=== PATIENT | female | born 1945 | race Caucasian/White ===

== ENCOUNTER 2016-09-22 17:18 | Inpatient (IN) | payer MEDICARE ==
--- NOTE | 2016-09-22 18:01 | ED ---
General Adult HPI - General Chief complaint: Extremity Problem,Nontraumatic Stated complaint: leg pain swelling Time Seen by Provider: 09/22/16 17:55 Source: patient, family, RN notes reviewed, old records reviewed Mode of arrival: wheelchair Limitations: physical limitation - History of Present Illness Initial comments: This is a 71-year-old female here for evaluation. Patient brought in by [place] for evaluation of lower extremity edema, patient's poor strain secondary to clinical and overall mental state. Family concerned about lower extremity swelling and redness, especially worse in the left side compared to the right. Patient is of physical complaints, is tangential in her story telling. - Related Data Home Medications Medication Instructions Recorded Confirmed Betamethasone Dipropionate 1 applic TOPICAL BID 09/22/16 09/22/16 [Diprolene AF 0.05% Cream] Cholestyramine (with Sugar) 4 gm PO DAILY 09/22/16 09/22/16 [Questran] Cranberry 425mg 425 mg PO DAILY 09/22/16 09/22/16 Doxycycline Hyclate 100 mg PO BID 09/22/16 09/22/16 Felodipine [Felodipine ER] 5 mg PO HS 09/22/16 09/22/16 Haloperidol [Haldol] 5 mg PO BID PRN 09/22/16 09/22/16 Hydrochlorothiazide [Hydrodiuril] 25 mg PO DAILY 09/22/16 09/22/16 Ibuprofen [Advil] 200 - 400 mg PO Q8HR PRN 09/22/16 09/22/16 Insulin Aspart Protam & Aspart 16 unit SQ HS 09/22/16 09/22/16 [NovoLOG MIX 70-30 Flexpen] Insulin Aspart Protam & Aspart 28 unit SQ [id number] 09/22/16 09/22/16 [NovoLOG MIX 70-30 Flexpen] Losartan/Hydrochlorothiazide 1 tab PO DAILY 09/22/16 09/22/16 [Losartan-Hctz 100-25 mg Tab] Metoprolol Tartrate [Lopressor] 100 mg PO BID 09/22/16 09/22/16 Mupirocin 2% Oint [Bactroban 2% 1 applic TOPICAL BID 09/22/16 09/22/16 Oint] Omeprazole [PriLOSEC] 20 mg PO DAILY 09/22/16 09/22/16 Oxybutynin ER [Ditropan Xl] 15 mg PO DAILY 09/22/16 09/22/16 Triphrocaps 1 cap PO DAILY 09/22/16 09/22/16 Venlafaxine HCl [Effexor] 75 mg PO TID 09/22/16 09/22/16 cloNIDine HCL 0.3 mg PO BID 09/22/16 09/22/16 hydrOXYzine HCL [Atarax] 25 mg PO BID 09/22/16 09/22/16 metFORMIN HCL [Glucophage] 500 mg PO BID 09/22/16 09/22/16 traMADol-ACETAMINOP 37.5-325MG 1 tab PO QID PRN 09/22/16 09/22/16 [Ultracet] Allergies Allergy/AdvReac Type Severity Reaction Status Date / Time Penicillins Allergy Anaphylaxis Verified 09/22/16 17:38 Sulfa (Sulfonamide Allergy Unknown Verified 09/22/16 17:38 Antibiotics) Childhood Review of Systems ROS Statement: Those systems with pertinent positive or pertinent negative responses have been documented in the HPI. ROS Other: All systems not noted in ROS Statement are negative. Past Medical History Past Medical History: Diabetes Mellitus, Hypertension, Liver Disease History of Any Multi-Drug Resistant Organisms: MRSA Date of last positivie culture/infection: 2013 MDRO Source:: [place] legs Past Surgical History: Back Surgery, Cholecystectomy, Hernia Repair, Orthopedic Surgery Additional Past Surgical History / Comment(s): edwin knee,eye surgery Past Psychological History: Anxiety Smoking Status: Former smoker Past Alcohol Use History: None Reported Past Drug Use History: None Reported - Past Family History Mother Family Medical History: Congestive Heart Failure (CHF), Diabetes Mellitus General Exam - General Exam Comments Initial Comments: Circumferential bilateral bilateral lower extremity edema and erythema with warmth Limitations: physical limitation General appearance: alert, in no apparent distress Head exam: Present: atraumatic, normocephalic, normal inspection Eye exam: Present: normal appearance, PERRL, EOMI. Absent: scleral icterus, conjunctival injection, periorbital swelling ENT exam: Present: normal exam, mucous membranes moist Neck exam: Present: normal inspection. Absent: tenderness, meningismus, lymphadenopathy Respiratory exam: Present: normal lung sounds bilaterally. Absent: respiratory distress, wheezes, rales, rhonchi, stridor Cardiovascular Exam: Present: regular rate, normal rhythm, normal heart sounds. Absent: systolic murmur, diastolic murmur, rubs, gallop, clicks GI/Abdominal exam: Present: soft, normal bowel sounds. Absent: distended, tenderness, guarding, rebound, rigid Extremities exam: Present: normal inspection, full ROM, normal capillary refill. Absent: tenderness, pedal edema, joint swelling, calf tenderness Back exam: Present: normal inspection Neurological exam: Present: alert, oriented X3, CN II-XII intact Psychiatric exam: Present: normal affect, normal mood Skin exam: Present: warm, dry, intact, normal color. Absent: rash Course Vital Signs 09/22/16 09/22/16 17:31 18:38 Temperature 98.2 F Pulse Rate 60 88 Respiratory 18 18 Rate Blood Pressure 183/73 O2 Sat by Pulse 95 99 Oximetry - Reevaluation(s) Reevaluation #1: Family spoke with greater than 15 minutes regarding plan of care, questions are answered Medical Decision Making - Medical Decision Making 71 female the ER for evaluation of altered mental status, patient also has bilateral lower extremity edema and swelling, positive cellulose, patient admitted for antibiotics and further evaluation of abnormal lab results. Including pancytopenia - Lab Data Result diagrams: 09/25/16 08:21 09/25/16 08:21 Lab Results 09/22/16 09/22/16 09/22/16 Range/Units 18:50 18:50 18:50 WBC 4.8 (3.8-10.6) k/uL RBC 4.44 (3.80-5.40) m/uL Hgb 13.2 (11.4-16.0) gm/dL Hct 38.4 (34.0-46.0) % MCV 86.4 (80.0-100.0) fL MCH 29.6 (25.0-35.0) pg MCHC 34.3 (31.0-37.0) g/dL RDW 15.3 (11.5-15.5) % Plt Count 65 L (150-450) k/uL Neutrophils % 67 % Lymphocytes % 12 % Monocytes % 8 % Eosinophils % 10 % Basophils % 1 % Neutrophils # 3.2 (1.3-7.7) k/uL Lymphocytes # 0.6 L (1.0-4.8) k/uL Monocytes # 0.4 (0-1.0) k/uL Eosinophils # 0.5 (0-0.7) k/uL Basophils # 0.0 (0-0.2) k/uL Manual Slide Review Performed Polychromasia Present Poikilocytosis Slight PT (9.0-12.0) sec INR (<1.1) APTT (22.0-30.0) sec D-Dimer (<0.60) mg/L FEU Sodium 138 (137-145) mmol/L Potassium 3.8 (3.5-5.1) mmol/L Chloride 100 (98-107) mmol/L Carbon Dioxide 28 (22-30) mmol/L Anion Gap 10 mmol/L BUN 17 (7-17) mg/dL Creatinine 0.64 (0.52-1.04) mg/dL Est GFR (MDRD) Af Amer >60 (>60 ml/min/1.73 sqM) Est GFR (MDRD) Non-Af >60 (>60 ml/min/1.73 sqM) Glucose 184 H (74-99) mg/dL Estimated Ave Glu mg/dL mg/dL Hemoglobin A1c (4.2-6.1) % Calcium 10.0 (8.4-10.2) mg/dL Phosphorus 2.7 (2.5-4.5) mg/dL Magnesium 1.3 L (1.6-2.3) mg/dL Total Bilirubin 0.9 (0.2-1.3) mg/dL AST 66 H (14-36) U/L ALT 61 H (9-52) U/L Alkaline Phosphatase 90 (38-126) U/L Total Creatine Kinase 32 (30-135) U/L CK-MB (CK-2) 0.7 (0.0-2.4) ng/mL CK-MB (CK-2) Rel Index 2.2 Troponin I <0.012 (0.000-0.034) ng/mL Total Protein 7.5 (6.3-8.2) g/dL Albumin 4.0 (3.5-5.0) g/dL Urine Color Urine Appearance (Clear) Urine pH (5.0-8.0) Ur Specific [place] (1.001-1.035) Urine Protein (Negative) Urine Glucose (UA) (Negative) Urine Ketones (Negative) Urine Blood (Negative) Urine Nitrite (Negative) Urine Bilirubin (Negative) Urine Urobilinogen (<2.0) mg/dL Ur Leukocyte Esterase (Negative) Urine RBC (0-5) /hpf Urine WBC (0-5) /hpf Ur Squamous Epith Cells (0-4) /hpf Urine Bacteria (None) /hpf Urine Mucus (None) /hpf Urine Yeast (Budding) (None) /hpf 09/22/16 09/22/16 09/22/16 Range/Units 18:50 18:50 18:50 WBC (3.8-10.6) k/uL RBC (3.80-5.40) m/uL Hgb (11.4-16.0) gm/dL Hct (34.0-46.0) % MCV (80.0-100.0) fL MCH (25.0-35.0) pg MCHC (31.0-37.0) g/dL RDW (11.5-15.5) % Plt Count (150-450) k/uL Neutrophils % % Lymphocytes % % Monocytes % % Eosinophils % % Basophils % % Neutrophils # (1.3-7.7) k/uL Lymphocytes # (1.0-4.8) k/uL Monocytes # (0-1.0) k/uL Eosinophils # (0-0.7) k/uL Basophils # (0-0.2) k/uL Manual Slide Review Polychromasia Poikilocytosis PT 11.7 (9.0-12.0) sec INR 1.2 (<1.1) APTT 23.8 (22.0-30.0) sec D-Dimer 0.56 (<0.60) mg/L FEU Sodium (137-145) mmol/L Potassium (3.5-5.1) mmol/L Chloride (98-107) mmol/L Carbon Dioxide (22-30) mmol/L Anion Gap mmol/L BUN (7-17) mg/dL Creatinine (0.52-1.04) mg/dL Est GFR (MDRD) Af Amer (>60 ml/min/1.73 sqM) Est GFR (MDRD) Non-Af (>60 ml/min/1.73 sqM) Glucose (74-99) mg/dL Estimated Ave Glu mg/dL 148 mg/dL Hemoglobin A1c 6.8 H (4.2-6.1) % Calcium (8.4-10.2) mg/dL Phosphorus (2.5-4.5) mg/dL Magnesium (1.6-2.3) mg/dL Total Bilirubin (0.2-1.3) mg/dL AST (14-36) U/L ALT (9-52) U/L Alkaline Phosphatase (38-126) U/L Total Creatine Kinase (30-135) U/L CK-MB (CK-2) (0.0-2.4) ng/mL CK-MB (CK-2) Rel Index Troponin I (0.000-0.034) ng/mL Total Protein (6.3-8.2) g/dL Albumin (3.5-5.0) g/dL Urine Color Yellow Urine Appearance Cloudy H (Clear) Urine pH 6.5 (5.0-8.0) Ur Specific [place] 1.008 (1.001-1.035) Urine Protein Negative (Negative) Urine Glucose (UA) Negative (Negative) Urine Ketones Negative (Negative) Urine Blood Small H (Negative) Urine Nitrite Negative (Negative) Urine Bilirubin Negative (Negative) Urine Urobilinogen <2.0 (<2.0) mg/dL Ur Leukocyte Esterase Large H (Negative) Urine RBC 6 H (0-5) /hpf Urine WBC >182 H (0-5) /hpf Ur Squamous Epith Cells <1 (0-4) /hpf Urine Bacteria Many H (None) /hpf Urine Mucus Rare H (None) /hpf Urine Yeast (Budding) Occasional H (None) /hpf - Radiology Data Radiology results: report reviewed (Ultrasound negative for DVT, chest x-ray negative for acute disease), image reviewed Disposition Clinical Impression: Bilateral lower extremity edema, Cellulitis, Altered mental status, Thrombocytopenia Disposition: ADMITTED IP TO THIS [facility] Condition: Fair
[2016-09-22] MEDS ORDERED: IV VANCOMYCIN PER PHARMACY 1 EACH MISC MISCELLANE PRN (18:38)
[2016-09-22] MEDS ORDERED: VANCOMYCIN 1,500 MG in SODIUM CHLORIDE 0.9% 250 ML IVPB STA (18:45)
[2016-09-22 19:07] LABS: Appearance,Urine Cloudy (Clear); Bacteria,Urine Many /hpf; Bilirubin,Urine Negative (Negative); Glucose,Urine (UA) Negative (Negative); Ketones,Urine Negative (Negative); Leukocyte Esterase,Urine Large (Negative); Mucus,Urine Rare /hpf; Nitrite,Urine Negative (Negative); PH, Urine 6.5 (5.0-8.0); Particle Count 2171; Protein,Urine Negative (Negative); RBC,Urine 6 /hpf (0-5); Specific Gravity,Urine 1.008 (1.001-1.035); Squamous Epithelial Cell,Urine <1 /hpf (0-4); UA Billing (MACRO vs. MICRO) MICRO; Urobilinogen,Urine <2.0 mg/dL (<2.0); WBC,Urine >182 /hpf (0-5)
--- NOTE | 2016-09-22 19:11 | XR ---
EXAMINATION TYPE: XR chest 2V DATE OF EXAM: 09/22/2016 7:07 PM COMPARISON: NONE HISTORY: Weakness TECHNIQUE: Frontal and lateral views of the chest are obtained. FINDINGS: There is a poor inspiration. Heart is enlarged. There is no definite heart failure. There is no sign of pleural effusion. There are no hilar masses. There are calcified granulomata at the pul monary marianna. IMPRESSION: Cardiomegaly. No gross heart failure.
[2016-09-22 19:13] LABS: INR 1.2 (<1.1); Partial Thromboplastin Time 23.8 sec (22.0-30.0); Prothrombin Time 11.7 sec (9.0-12.0)
[2016-09-22 19:14] LABS: ALT 61 U/L (9-52); AST 66 U/L (14-36); Alkaline Phosphatase 90 U/L (38-126); Anion Gap 10 mmol/L; Blood Urea Nitrogen 17 mg/dL (7-17); Carbon Dioxide 28 mmol/L (22-30); Chloride 100 mmol/L (98-107); Glucose 184 mg/dL (74-99); Magnesium 1.3 mg/dL (1.6-2.3); Non-African American GFR(MDRD) >60 (>60 ml/min/1.73 sqM); Phosphorous 2.7 mg/dL (2.5-4.5); Potassium 3.8 mmol/L (3.5-5.1); Sodium 138 mmol/L (137-145); Total Bilirubin 0.9 mg/dL (0.2-1.3); Total Protein 7.5 g/dL (6.3-8.2)
[2016-09-22 19:20] LABS: Creatine Kinase 32 U/L (30-135)
[2016-09-22 19:24] LABS: Basophils % (A) 1 %; CH 29.9; CHCM 34.9; Eosinophils # (A) 0.5 k/uL (0-0.7); Eosinophils % (A) 10 %; HCT 38.4 % (34.0-46.0); HGB 13.2 gm/dL (11.4-16.0); Luc # (Auto) 0.14; Luc % (Auto) 3; Lymphocytes # (A) 0.6 k/uL (1.0-4.8); Lymphocytes % (A) 12 %; MCH 29.6 pg (25.0-35.0); MCHC 34.3 g/dL (31.0-37.0); MCV 86.4 fL (80.0-100.0); Mean Platelet Volume 7.9; Monocytes # (A) 0.4 k/uL (0-1.0); Monocytes % (A) 8 %; Neutrophils # (A) 3.2 k/uL (1.3-7.7); Neutrophils % (A) 67 %; Poikilocytosis Slight; RBC 4.44 m/uL (3.80-5.40); RDW 15.3 % (11.5-15.5); WBC 4.8 k/uL (3.8-10.6); WBC (Perox) 4.51
[2016-09-22 19:34] LABS: Creatine Kinase MB 0.7 ng/mL (0.0-2.4); Troponin I <0.012 ng/mL (0.000-0.034)
[2016-09-22] MEDS ORDERED: LEVOFLOXACIN 750 MG TAB PO STA (20:19)
[2016-09-22 20:28] LABS: Manual Review Performed
[2016-09-22 20:29] LABS: Polychromasia Present
--- NOTE | 2016-09-22 21:18 | US ---
EXAMINATION TYPE: US venous doppler duplex LE DATE OF EXAM: 09/22/2016 9:06 PM COMPARISON: NONE CLINICAL HISTORY: Pain. EC patient with medial thigh pain; on antibiotic for left leg cellulitis SIDE PERFORMED: Bilateral VESSELS IMAGED: Common Femoral Vein Deep Femoral Vein Greater Saphenous Vein * Femoral Vein Popliteal Vein Small Saphenous Vein * Proximal Calf Veins (* superficial vessels) Right Leg: Negative for DVT; bilateral ankle edema channels are noted anteriorly and right > left an kle. Left Leg: Negative for DVT IMPRESSION: There is no evidence of deep venous thrombosis. There is some edema noted at the ankles.
[2016-09-22] MEDS ORDERED: ACETAMINOPHEN TAB 325 MG TAB PO PRN (22:05)
[2016-09-22] MEDS ORDERED: NALOXONE 0.4 MG/ML 1 ML VIAL IV PRN (22:05)
[2016-09-22] MEDS ORDERED: MAGNESIUM OXIDE 400 MG TAB PO STA (22:09)
[2016-09-22] MEDS ORDERED: HALOPERIDOL 5 MG TAB PO PRN (22:09)
[2016-09-23] MEDS: SODIUM CHLORIDE 0.9% 1,000 ML IV SCH ×2 (00:22→20:28)
[2016-09-23] MEDS: traMADol-ACETAMINOP 37.5-325MG 1 EACH TAB PO PRN ×2 (00:35→20:22)
[2016-09-23 02:46] LABS: Glucose,Whole Blood 246 mg/dL (75-99)
[2016-09-23] MEDS: VANCOMYCIN 1,500 MG in SODIUM CHLORIDE 0.9% 250 ML IVPB SCH ×2 (06:12→17:30)
[2016-09-23 07:07] LABS: Glucose,Whole Blood 204 mg/dL (75-99)
[2016-09-23] MEDS: INSULIN LISPRO (humaLOG) 300 UNIT/3 ML VIAL SQ SCH ×4 (07:27→20:53)
[2016-09-23] MEDS: PANTOPRAZOLE 40 MG TABLET PO SCH (07:27)
[2016-09-23] MEDS: metFORMIN 500 MG TAB PO SCH ×2 (07:27→17:10)
[2016-09-23] MEDS: INSULN ASP PRT/INSULIN ASPART 100 UNIT/ML 10 ML VIAL SQ SCH ×2 (07:27→20:52)
[2016-09-23] MEDS: HYDROCHLOROTHIAZIDE 25 MG TAB PO SCH (08:07)
[2016-09-23] MEDS: LOSARTAN-HCTZ 50-12.5 MG 1 EACH TAB PO SCH (08:07)
[2016-09-23] MEDS: METOPROLOL TARTRATE 50 MG TAB PO SCH ×2 (08:07→20:24)
[2016-09-23] MEDS: OXYBUTYNIN 15 MG TAB.ER.24 PO SCH (08:07)
[2016-09-23] MEDS: hydrOXYzine HCL 25 MG TAB PO SCH ×2 (08:08→20:24)
[2016-09-23] MEDS: HEPARIN SODIUM,PORCINE 5,000 UNIT/ML 1 ML VIAL SQ SCH ×2 (08:08→20:25)
[2016-09-23] MEDS: VENLAFAXINE HCL 75 MG TAB PO SCH ×3 (08:08→20:53)
[2016-09-23] MEDS: cloNIDine HCL 0.1 MG TAB PO SCH ×2 (08:08→20:24)
[2016-09-23] MEDS: CHOLESTYRAMINE (WITH SUGAR) 4 GM PACKET PO SCH (08:08)
[2016-09-23] MEDS: MUPIROCIN 2% OINT 22 GM TUBE TOPICAL SCH ×2 (08:21→20:24)
[2016-09-23] MEDS: BETAMETHASONE DIPROPIONATE 0.05% CREAM 15 GM TUBE TOPICAL SCH ×2 (08:21→20:26)
[2016-09-23] MEDS ORDERED: CRANBERRY 425 MG PO SCH (09:00)
[2016-09-23] MEDS ORDERED: DOXYCYCLINE 50 MG CAP PO SCH (09:00)
[2016-09-23] MEDS ORDERED: FAMOTIDINE 20 MG TAB PO SCH (09:00)
[2016-09-23] MEDS: B COMPLEX-VIT C-VIT E-ZINC 1 EACH TAB PO SCH (11:41)
[2016-09-23 11:47] LABS: Glucose,Whole Blood 192 mg/dL (75-99)
[2016-09-23 12:35] LABS: Hemoglobin A1C 6.8 % (4.2-6.1)
[2016-09-23] MEDS ORDERED: PERMETHRIN 5% CREAM 60 GM TUBE TOPICAL ONE (16:00)
[2016-09-23 16:58] LABS: Glucose,Whole Blood 137 mg/dL (75-99)
--- NOTE | 2016-09-23 19:19 | CT ---
EXAMINATION TYPE: CT brain wo con DATE OF EXAM: 09/23/2016 6:54 PM COMPARISON: NONE HISTORY: Patient poor historian. Changes in mental status. CT DLP: 1126 mGycm Automated exposure control for dose reduction was used. FINDINGS: There is cerebral cortical atrophy. There is no mass effect nor midline shift. There is no sign of in tracranial hemorrhage. The calvarium is intact. IMPRESSION: Normal unenhanced head CT scan.
[2016-09-23] MEDS: LEVOFLOXACIN 500 MG TAB PO SCH (20:24)
[2016-09-23] MEDS: amLODIPine 5 MG TAB PO SCH (20:28)
[2016-09-23 21:05] LABS: Hepatitis B Core IgM Index 0.03
[2016-09-23 21:07] LABS: Glucose,Whole Blood 187 mg/dL (75-99)
[2016-09-23 21:17] LABS: Hepatitis C Virus IgG Index 0.06
[2016-09-23 21:19] LABS: Hepatitis C Virus IgG Ab Negative (Negative)
--- NOTE | 2016-09-23 21:52 | HP ---
DATE OF ADMISSION: 09/22/2016 CHIEF COMPLAINT: Leg pain and swelling and as well as confusion. HISTORY OF PRESENT ILLNESS: This 71-year-old woman with a past medical history of multiple medical problems, including diabetes, hypertension, and history of liver disease, history of MRSA, history of back surgeries, cholecystectomy, history of anxiety, history of significant history of substance abuse in the past, apparently living in an [facility] home was noted to have some confusion as well as significant lesions in the legs and trunk. The patient had severe itching. The patient was evaluated by dermatology apparently. The patient was taken to [facility] and was admitted for further evaluation and treatment. There is no any fever, or any chills. No history of trauma. The patient is confused, unable to give coherent history. Most of the history taken from review of the chart, discussion with the staff and review of the chart at this time. The patient had a chest x-ray which showed cardiomegaly with no evidence of any gross failure. The patient also had a venous Doppler study, which showed no evidence of any DVT, some edema of the ankle was noted. Past medical history: History of diabetes mellitus, history of chronic liver disease, hypertension, history of MRSA, history of back surgery, cholecystectomy, history of anxiety. Medications prior to admission include home medications are: 1. Doxycycline 100 mg p.o. b.i.d. 2. Ultracet 1 tablet p.o. q.i.d. p.r.n. 3. Advil 200/400 q.8 p.r.n. 4. Haldol 5 mg b.i.d. p.r.n. 5. Cranberry p.o. daily. 6. Diprolene 1 application topically b.i.d. 7. Triphrocaps one cap daily. 8. Prilosec 20 mg daily. 9. Atrovent 2% b.i.d. 10. Novolin 70/30 60 units subcutaneously at bedtime and 22 subcu a.c. breakfast. 11. Ditropan XL 15 mg p.o. daily, 12. Losartan hydrochlorothiazide 100/25 mg p.o. daily. 13. Clonidine 0.3 p.o. b.i.d. 14. Effexor 75 mg p.o. t.i.d. 15. Lopressor 100 mg p.o. b.i.d. 16. HydroDIURIL 25 mg p.o. daily. 17. Felodipine 5 mg p.o. q.h.s. 18. Questran 4 grams p.o. daily. 19. Glucophage 500 mg p.o. b.i.d. 20. Atarax 25 mg p.o. b.i.d. ALLERGIES: PENICILLIN, SULFA. FAMILY HISTORY: History of congestive heart failure and diabetes mellitus in the family. SOCIAL HISTORY: Previous history of smoking. No history of current smoking or alcohol intake. REVIEW OF SYSTEMS: Could not be taken at length because of the patient's change in mental status. PHYSICAL EXAMINATION: Patient is conscious, confused, dysarthric. Pulse is 50, blood pressure 142/60, respiration 16, temperature 98.2. Pulse ox 94% on room air. HEENT: Conjunctivae normal. Oral mucosa moist. NECK: No JVD. No carotid bruit. No lymph node enlargement. CARDIOVASCULAR: S1, S2 muffled. No S3, no S4. RESPIRATORY: Breath sounds diminished at the bases. Bilateral scattered rhonchi and crackles. ABDOMEN: Soft and nontender. No mass palpable. No hepatosplenomegaly. Legs: No edema. No swelling. Nervous system: Higher functions as mentioned earlier. moves all four limbs. No focal motor or sensory deficits. LYMPHATICS: No lymph nodes palpable in the neck, axillae or groin. SKIN: No ulcer, rash or bleeding. Labs are platelets are 65. Otherwise, glucose 148, AST 63, ALT 61 and magnesium is 1.3. UA shows significant urinary tract infection. ASSESSMENT: 1. Change in mental status, and metabolic encephalopathy with acute on chronic multifactorial, possibly secondary to liver disease, and as well as urinary tract infection with sepsis. 2. Urinary tract infection with sepsis. 3. Type 2 diabetes mellitus. 4. Diffuse skin lesions, possibly secondary from chronic liver disease. 5. Chronic liver disease. 6. Remote history of significant polysubstance abuse. 7. Thrombocytopenia. 8. Increased AST, ALT. 9. Hypomagnesemia. 10. History of diabetes type 2. 11. Hypertension. 12. History of Methicillin-resistant Staph aureus. 13. History of back surgery and degenerative joint disease. 14. History of cholecystectomy. 15. History of knee surgery, degenerative joint disease. 16. History of anxiety, not otherwise specified. 17. FULL CODE. 18. Remote history of nicotine dependence. RECOMMENDATIONS AND DISCUSSION: This 71-year-old woman who presented with multiple complex medical issues, we will monitor the patient closely. Continue the current medications, continue symptomatic treatment. Otherwise, I would recommend empiric antibiotics at this time and I would also recommend ammonia. Repeat labs. Otherwise, follow the cultures. We also check a serum lactic acidosis if not done. Guarded prognosis because of multiple complex medical issues. Further recommendations to follow. A copy of dictation forwarded to Dr. Renner who is the primary physician. MARCELLUS
[2016-09-24 02:50] LABS: Glucose,Whole Blood 174 mg/dL (75-99)
[2016-09-24] MEDS ORDERED: VANCOMYCIN TROUGH DUE 1 EACH MISC MISCELLANE ONE (05:00)
[2016-09-24] MEDS: VANCOMYCIN 1,500 MG in SODIUM CHLORIDE 0.9% 250 ML IVPB SCH ×2 (05:43→17:36)
[2016-09-24 06:01] LABS: ALT 50 U/L (9-52); AST 41 U/L (14-36); Alkaline Phosphatase 61 U/L (38-126); Anion Gap 9 mmol/L; Blood Urea Nitrogen 17 mg/dL (7-17); Calcium 9.7 mg/dL (8.4-10.2); Carbon Dioxide 30 mmol/L (22-30); Chloride 102 mmol/L (98-107); Glucose 138 mg/dL (74-99); Magnesium 1.3 mg/dL (1.6-2.3); Non-African American GFR(MDRD) >60 (>60 ml/min/1.73 sqM); Sodium 141 mmol/L (137-145); Total Bilirubin 0.7 mg/dL (0.2-1.3); Total Protein 6.3 g/dL (6.3-8.2)
[2016-09-24 06:21] LABS: Potassium 3.7 mmol/L (3.5-5.1)
[2016-09-24 06:33] LABS: Aty Lym Flag Slight; CH 29.6; CHCM 34.2; HCT 34.8 % (34.0-46.0); HDW 3.93; HGB 11.9 gm/dL (11.4-16.0); MCH 29.8 pg (25.0-35.0); MCHC 34.2 g/dL (31.0-37.0); MCV 87.2 fL (80.0-100.0); Mean Platelet Volume 9.1; Poikilocytosis Slight; RBC 3.99 m/uL (3.80-5.40); RDW 15.1 % (11.5-15.5); WBC 2.4 k/uL (3.8-10.6); WBC (Perox) 2.69
[2016-09-24 07:25] LABS: Glucose,Whole Blood 167 mg/dL (75-99)
[2016-09-24] MEDS: INSULIN LISPRO (humaLOG) 300 UNIT/3 ML VIAL SQ SCH ×4 (07:28→20:50)
[2016-09-24] MEDS: INSULN ASP PRT/INSULIN ASPART 100 UNIT/ML 10 ML VIAL SQ SCH ×2 (07:28→20:50)
[2016-09-24] MEDS: metFORMIN 500 MG TAB PO SCH ×2 (07:29→17:33)
[2016-09-24] MEDS: CHOLESTYRAMINE (WITH SUGAR) 4 GM PACKET PO SCH (07:44)
[2016-09-24] MEDS: MUPIROCIN 2% OINT 22 GM TUBE TOPICAL SCH ×2 (07:44→20:25)
[2016-09-24] MEDS: PANTOPRAZOLE 40 MG TABLET PO SCH (07:45)
[2016-09-24] MEDS: LOSARTAN-HCTZ 50-12.5 MG 1 EACH TAB PO SCH (07:45)
[2016-09-24] MEDS: cloNIDine HCL 0.1 MG TAB PO SCH ×2 (07:45→20:27)
[2016-09-24] MEDS: HYDROCHLOROTHIAZIDE 25 MG TAB PO SCH (07:46)
[2016-09-24] MEDS: hydrOXYzine HCL 25 MG TAB PO SCH ×2 (07:46→20:27)
[2016-09-24] MEDS: METOPROLOL TARTRATE 50 MG TAB PO SCH ×2 (07:46→20:28)
[2016-09-24] MEDS: VENLAFAXINE HCL 75 MG TAB PO SCH ×3 (07:47→20:29)
[2016-09-24] MEDS: OXYBUTYNIN 15 MG TAB.ER.24 PO SCH (07:47)
[2016-09-24] MEDS: BETAMETHASONE DIPROPIONATE 0.05% CREAM 15 GM TUBE TOPICAL SCH ×2 (07:49→20:26)
[2016-09-24 08:42] LABS: Add Differential Manual Differential
[2016-09-24 08:46] LABS: Manual Review Performed; Nucleated Red Blood Cells 0 /100 WBC (0-0); Total Cells Counted 100
[2016-09-24] MEDS: HEPARIN SODIUM,PORCINE 5,000 UNIT/ML 1 ML VIAL SQ SCH ×2 (09:35→20:27)
[2016-09-24] MEDS ORDERED: Magnesium Replacement Protocol 1 EACH MISC MISCELLANE PRN (10:55)
[2016-09-24] MEDS: MAGNESIUM SULFATE-D5W PMX 1 GM in DEXTROSE/WATER 1 100ML.BAG IVPB SCH ×3 (11:37→14:31)
[2016-09-24] MEDS: MULTIVITAMINS, THERA 1 EACH TAB PO SCH (11:40)
[2016-09-24] MEDS: FOLIC ACID 1 MG TAB PO SCH (11:40)
[2016-09-24] MEDS: B COMPLEX-VIT C-VIT E-ZINC 1 EACH TAB PO SCH (11:40)
[2016-09-24] MEDS: THIAMINE 100 MG TAB PO SCH (11:40)
[2016-09-24 12:01] LABS: Glucose,Whole Blood 147 mg/dL (75-99)
[2016-09-24 17:08] LABS: Glucose,Whole Blood 82 mg/dL (75-99)
--- NOTE | 2016-09-24 18:55 | PN ---
DATE OF SERVICE: 09/24/2016 This 71 -year-old woman admitted with leg swelling as well as confusion, metabolic encephalopathy is being closely monitored at this time. The patient was started on local treatment. The CAT scan of the brain was done, which showed a normal nonenhanced CAT scan. The patient is being closely monitored. Past medical history reviewed. REVIEW OF SYSTEMS: CARDIOVASCULAR: No angina or palpitations. RESPIRATORY: As mentioned earlier. GASTROINTESTINAL: As mentioned earlier. : No dysuria. Nervous system: No numbness or weakness. Current medications are reviewed and include: 1. Tylenol 650 q.6 p.r.n. 2. Norvasc 5 mg q.h.s. 3. Betamethasone. 4. Questran 4 mg a day. 5. Catapres 0.5 b.i.d. 6. Folic acid 1 mg daily. 8. Hyzaar 50/12.5 two b.i.d. 9. Heparin 5000 subcu b.i.d. 10. Hydrodiuril 25 mg daily. 11. Atarax 25 mg p.o. b.i.d. 12. Novolog mix 70/30 28 and 16 units. 13. Levaquin 500 mg daily. 14. Glucophage. 15. Lopressor. 16. Multivitamin. 17. Narcan. 18. Ditropan. 19. Vitamin B1. 20. Vancomycin. 21. Effexor. PHYSICAL EXAMINATION: The patient is alert and oriented times two. Pulse 50, blood pressure 130/68, respiratory rate 16, temperature 98.3, pulse ox 99% on room air. HEENT: Conjunctivae normal. NECK: No jugular venous distention. CARDIOVASCULAR: S1, S2 muffled. RESPIRATORY: Breath sounds diminished at the bases. A few scattered rhonchi and crackles. ABDOMEN: Soft, nontender. LEGS: No swelling. No edema. CENTRAL NERVOUS SYSTEM: Diffusely weak. LABS: WBC 2.5, platelets of 45. Sodium is 138, Vancomycin 12.1, albumin 3.1. ASSESSMENT: 1. Change in mental status, metabolic encephalopathy with acute on chronic multifactorial, possibly secondary liver disease, urinary tract infection with sepsis. 2. Urinary tract infection with sepsis present on admission. 3. Type 2 diabetes mellitus. 4. Diffuse skin lesions, possibly secondary from chronic liver disease or scabies. 5. Chronic liver disease. 6. Remote history of significant polysubstance abuse. 7. Thrombocytopenia. 8. Increased AST, ALT. 9. Thrombocytopenia secondary to chronic liver disease. 10. Hypomagnesemia. 11. History of diabetes mellitus type 2. 12. Hypertension. 13. History of Methicillin-resistant Staph aureus. 14. History of back surgery and degenerative joint disease. 15. History of cholecystectomy. 16. History of knee surgery and degenerative joint disease . 17. History of anxiety, not otherwise specified. 18. Remote history of nicotine dependence. 19. FULL CODE. RECOMMENDATIONS AND DISCUSSION: Recommend to continue current medications, continue symptomatic treatment. Continue with antibiotics. Repeat labs. Platelets have been low. There is no active bleeding manifestations. Closely monitor. We will obtain PT, OT evaluation and continue to monitor. Guarded prognosis because of multiple complex medical issues. Further recommendations to follow. MTDD
[2016-09-24] MEDS: amLODIPine 5 MG TAB PO SCH (20:25)
[2016-09-24] MEDS: LEVOFLOXACIN 500 MG TAB PO SCH (20:28)
[2016-09-24] MEDS: SODIUM CHLORIDE 0.9% 1,000 ML IV SCH (20:29)
[2016-09-24 20:44] LABS: Glucose,Whole Blood 200 mg/dL (75-99)
[2016-09-25 03:13] LABS: Glucose,Whole Blood 139 mg/dL (75-99)
[2016-09-25] MEDS: VANCOMYCIN 1,500 MG in SODIUM CHLORIDE 0.9% 250 ML IVPB SCH ×2 (05:26→17:46)
[2016-09-25] MEDS: traMADol-ACETAMINOP 37.5-325MG 1 EACH TAB PO PRN (06:31)
[2016-09-25 08:31] LABS: Glucose,Whole Blood 146 mg/dL (75-99)
[2016-09-25] MEDS: HEPARIN SODIUM,PORCINE 5,000 UNIT/ML 1 ML VIAL SQ SCH (08:53)
[2016-09-25] MEDS: LOSARTAN-HCTZ 50-12.5 MG 1 EACH TAB PO SCH (08:54)
[2016-09-25] MEDS: hydrOXYzine HCL 25 MG TAB PO SCH ×2 (08:54→20:53)
[2016-09-25] MEDS: METOPROLOL TARTRATE 50 MG TAB PO SCH ×2 (08:54→20:53)
[2016-09-25] MEDS: CHOLESTYRAMINE (WITH SUGAR) 4 GM PACKET PO SCH (08:55)
[2016-09-25] MEDS: cloNIDine HCL 0.1 MG TAB PO SCH ×2 (08:55→20:53)
[2016-09-25] MEDS: OXYBUTYNIN 15 MG TAB.ER.24 PO SCH (08:55)
[2016-09-25] MEDS: PANTOPRAZOLE 40 MG TABLET PO SCH (08:56)
[2016-09-25] MEDS: MUPIROCIN 2% OINT 22 GM TUBE TOPICAL SCH ×2 (08:56→20:55)
[2016-09-25] MEDS: metFORMIN 500 MG TAB PO SCH ×2 (08:56→16:48)
[2016-09-25] MEDS: VENLAFAXINE HCL 75 MG TAB PO SCH ×3 (08:56→21:40)
[2016-09-25] MEDS: INSULN ASP PRT/INSULIN ASPART 100 UNIT/ML 10 ML VIAL SQ SCH ×2 (08:56→21:00)
[2016-09-25] MEDS: BETAMETHASONE DIPROPIONATE 0.05% CREAM 15 GM TUBE TOPICAL SCH ×2 (08:56→20:55)
[2016-09-25] MEDS: INSULIN LISPRO (humaLOG) 300 UNIT/3 ML VIAL SQ SCH ×4 (08:57→20:53)
[2016-09-25 09:21] LABS: Aty Lym Flag Slight; CH 29.9; CHCM 34.6; HCT 33.6 % (34.0-46.0); HDW 3.97; HGB 11.4 gm/dL (11.4-16.0); MCH 29.5 pg (25.0-35.0); MCHC 33.8 g/dL (31.0-37.0); MCV 87.3 fL (80.0-100.0); Mean Platelet Volume 8.6; Poikilocytosis Slight; RBC 3.85 m/uL (3.80-5.40); RDW 15.4 % (11.5-15.5); WBC 2.3 k/uL (3.8-10.6); WBC (Perox) 2.43
[2016-09-25 09:29] LABS: ALT 42 U/L (9-52); AST 40 U/L (14-36); Alkaline Phosphatase 68 U/L (38-126); Anion Gap 8 mmol/L; Blood Urea Nitrogen 21 mg/dL (7-17); Calcium 9.4 mg/dL (8.4-10.2); Carbon Dioxide 31 mmol/L (22-30); Chloride 104 mmol/L (98-107); Glucose 141 mg/dL (74-99); Magnesium 1.5 mg/dL (1.6-2.3); Non-African American GFR(MDRD) >60 (>60 ml/min/1.73 sqM); Potassium 3.9 mmol/L (3.5-5.1); Sodium 143 mmol/L (137-145); Total Bilirubin 0.8 mg/dL (0.2-1.3); Total Protein 6.1 g/dL (6.3-8.2)
[2016-09-25 10:39] LABS: Add Differential Manual Differential
[2016-09-25 10:45] LABS: Nucleated Red Blood Cells 0 /100 WBC (0-0); Total Cells Counted 100
[2016-09-25] MEDS: FOLIC ACID 1 MG TAB PO SCH (11:31)
[2016-09-25] MEDS: THIAMINE 100 MG TAB PO SCH (11:31)
[2016-09-25] MEDS: HYDROCHLOROTHIAZIDE 25 MG TAB PO SCH (11:31)
[2016-09-25] MEDS: B COMPLEX-VIT C-VIT E-ZINC 1 EACH TAB PO SCH (11:31)
[2016-09-25] MEDS: MULTIVITAMINS, THERA 1 EACH TAB PO SCH (11:31)
[2016-09-25 12:09] LABS: Glucose,Whole Blood 210 mg/dL (75-99)
--- NOTE | 2016-09-25 14:45 | P.PN ---
Subjective Date of service 09/25/2016. Progress note dictated for Dr. Corcoran. Interval history: This a 71-year-old female resident of an assisted living , admitted with acute metabolic encephalopathy, possibly secondary to liver disease, UTI with sepsis and multiple other medical issues. Urine culture reporting Proteus mirabilis, antibiotics changed to Merrem. Evaluated by physical therapy and home with 22/01 supervision recommended at discharge. Using walker to ambulate. Afebrile. Platelets 38. Objective - Vital Signs Vital signs: Vital Signs Temp 97.7 F 09/25/16 07:00 Pulse 55 L 09/25/16 07:00 Resp 18 09/25/16 07:00 BP 145/65 09/25/16 07:00 Pulse Ox 95 09/25/16 07:00 Intake & Output 09/24/16 09/25/16 09/25/16 18:59 06:59 18:59 Other: Voiding Method Bedside Commode # Voids 2 1 1 # Bowel Movements 1 - Exam PHYSICAL EXAM: VITAL SIGNS: As above GENERAL: [Sitting up at side of bed, no acute distress] HEENT: [Pupils equal conjunctiva normal.] NECK: [Supple, no JVD] RESPIRATORY EFFORT:[Normal] LUNGS: [Diminished, CARDIOVASCULAR[regular S1 and S2, no murmurs rubs or gallops, positive edema] GI: [Abdomen soft, nontender, positive bowel sounds.] PSYCH: [Alert and oriented -2, mild pleasant confusion SKIN: Bilateral lower extremities erythema improving NEURO: No gross focal deficits, generalized diffuse weakness. Microbiology 09/22/16 18:50 Urine,Voided Urine Culture - Final Proteus mirabilis 09/22/16 18:50 Blood Blood Culture - Preliminary No Growth after 48 hours - Labs CBC & Chem 7: 09/25/16 08:21 09/25/16 08:21 Labs: Abnormal Lab Results - Last 24 Hours (Table) 09/24/16 09/25/16 09/25/16 Range/Units 20:42 03:11 08:21 WBC 2.3 L (3.8-10.6) k/uL Hct 33.6 L (34.0-46.0) % Plt Count 38 L* (150-450) k/uL Lymphocytes # (Manual) 0.2 L (1.0-4.8) k/uL Carbon Dioxide (22-30) mmol/L BUN (7-17) mg/dL Glucose (74-99) mg/dL POC Glucose (mg/dL) 200 H 139 H (75-99) mg/dL Magnesium (1.6-2.3) mg/dL AST (14-36) U/L Total Protein (6.3-8.2) g/dL Albumin (3.5-5.0) g/dL 09/25/16 09/25/16 09/25/16 Range/Units 08:21 08:28 12:06 WBC (3.8-10.6) k/uL Hct (34.0-46.0) % Plt Count (150-450) k/uL Lymphocytes # (Manual) (1.0-4.8) k/uL Carbon Dioxide 31 H (22-30) mmol/L BUN 21 H (7-17) mg/dL Glucose 141 H (74-99) mg/dL POC Glucose (mg/dL) 146 H 210 H (75-99) mg/dL Magnesium 1.5 L (1.6-2.3) mg/dL AST 40 H (14-36) U/L Total Protein 6.1 L (6.3-8.2) g/dL Albumin 3.0 L (3.5-5.0) g/dL Assessment and Plan Plan: 1. [Change in mental status, acute metabolic encephalopathy with acute on chronic, multifactorial possibly secondary liver disease, UTI with sepsis]. 2. [UTI with Proteus mirabilis with sepsis, present on admission]. 3. [Diabetes mellitus type 2]. 4. [Diffuse skin lesions possibly secondary from chronic liver disease or scabies]. 5. Chronic liver disease]. 6. [Remote history of significant polysubstance abuse]. 7. [Thrombocytopenia]. 8. Hypomagnesemia 9. History of MRSA l 10. Degenerative joint disease with history of back surgery and knee surgery 11. History of anxiety, not otherwise specified 12. Remote history of nicotine dependence. Plan: Continue on current medication regime ,monitoring and symptomatic treatment. As mentioned above Levaquin discontinued and Merrem initiated as urine culture now reporting Proteus mirabilis .Urine culture repeated and pending. Discharge planning in progress for tomorrow. PT/OT. The impression and plan of care has been dictated as directed. : I performed a H&P examination of this patient and discussed the same with the dictator. I agree with the dictator's note. Any additional findings/opinions/ etc. will be noted.
[2016-09-25 16:30] LABS: Glucose,Whole Blood 110 mg/dL (75-99)
[2016-09-25] MEDS: MEROPENEM 1 GM in SODIUM CHLORIDE 0.9% 100 ML IVPB SCH ×2 (16:48→23:12)
[2016-09-25 17:49] LABS: Iron 43 ug/dL (37-170)
[2016-09-25 17:59] LABS: Rheumatoid Factor, Qnt <9 IU/mL (<12); Total Iron Binding Capacity 226 ug/dL (265-497)
[2016-09-25 18:39] LABS: Vitamin B12 813 pg/mL
--- NOTE | 2016-09-25 19:45 | P.CONS ---
History of Present Illness - Reason for Consult Consult date: 09/25/16 thrombocytopenia Requesting physician: Juan Diego Corcoran - Chief Complaint leg pain, swelling - History of Present Illness She is a very pleasant 71-year-old female who stays at an assisted living facility. Patient states to me that she has known that she has had low platelets for several years. Patient was due to have an abdominal procedure at [facility] several years ago and she required platelet infusion before, during and after the surgery. Patient has a director of customer acquisition at [place] but she does not remember their name, she is now moved to this area to be closer with her son. She does not recall any specific treatments that were ordered for her or an official diagnosis. Patient states a known history of cirrhosis of the liver. Patient denies any epistaxis, gum bleeding, hemoptysis, hematemesis, she states that she occasionally has some hematuria, she denies any vaginal bleeding or discharge, no black or bloody stools, no hemorrhoids or bright red blood per rectum. Patient states that she has had the scabs present on her body for quite some time. She is admitted currently for treatment of lower extremity cellulitis. Review of Systems All systems: negative Constitutional: Reports as per HPI Past Medical History Past Medical History: Blood Disorder, Diabetes Mellitus, Hypertension, Liver Disease History of Any Multi-Drug Resistant Organisms: MRSA Year Discovered:: 2013 MDRO Source:: edwin legs Past Surgical History: Back Surgery, Cholecystectomy, Hernia Repair, Orthopedic Surgery Additional Past Surgical History / Comment(s): edwin knee,eye surgery Past Anesthesia/Blood Transfusion Reactions: Unable to Obtain Past Psychological History: Anxiety Smoking Status: Former smoker Past Alcohol Use History: None Reported Past Drug Use History: None Reported - Past Family History Mother Family Medical History: Congestive Heart Failure (CHF), Diabetes Mellitus Medications and Allergies Home Medications Medication Instructions Recorded Confirmed Type Betamethasone Dipropionate 1 applic TOPICAL BID 09/22/16 09/22/16 History [Diprolene AF 0.05% Cream] Cholestyramine (with Sugar) 4 gm PO DAILY 09/22/16 09/22/16 History [Questran] Cranberry 425mg 425 mg PO DAILY 09/22/16 09/22/16 History Doxycycline Hyclate 100 mg PO BID 09/22/16 09/22/16 History Felodipine [Felodipine ER] 5 mg PO HS 09/22/16 09/22/16 History Haloperidol [Haldol] 5 mg PO BID PRN 09/22/16 09/22/16 History Hydrochlorothiazide [Hydrodiuril] 25 mg PO DAILY 09/22/16 09/22/16 History Ibuprofen [Advil] 200 - 400 mg PO Q8HR PRN 09/22/16 09/22/16 History Insulin Aspart Protam & Aspart 16 unit SQ HS 09/22/16 09/22/16 History [NovoLOG MIX 70-30 Flexpen] Insulin Aspart Protam & Aspart 28 unit SQ AC-BRKFST 09/22/16 09/22/16 History [NovoLOG MIX 70-30 Flexpen] Losartan/Hydrochlorothiazide 1 tab PO DAILY 09/22/16 09/22/16 History [Losartan-Hctz 100-25 mg Tab] Metoprolol Tartrate [Lopressor] 100 mg PO BID 09/22/16 09/22/16 History Mupirocin 2% Oint [Bactroban 2% 1 applic TOPICAL BID 09/22/16 09/22/16 History Oint] Omeprazole [PriLOSEC] 20 mg PO DAILY 09/22/16 09/22/16 History Oxybutynin ER [Ditropan Xl] 15 mg PO DAILY 09/22/16 09/22/16 History Triphrocaps 1 cap PO DAILY 09/22/16 09/22/16 History Venlafaxine HCl [Effexor] 75 mg PO TID 09/22/16 09/22/16 History cloNIDine HCL 0.3 mg PO BID 09/22/16 09/22/16 History hydrOXYzine HCL [Atarax] 25 mg PO BID 09/22/16 09/22/16 History metFORMIN HCL [Glucophage] 500 mg PO BID 09/22/16 09/22/16 History traMADol-ACETAMINOP 37.5-325MG 1 tab PO QID PRN 09/22/16 09/22/16 History [Ultracet] Allergies Allergy/AdvReac Type Severity Reaction Status Date / Time Penicillins Allergy Anaphylaxis Verified 09/22/16 17:38 Sulfa (Sulfonamide Allergy Unknown Verified 09/22/16 17:38 Antibiotics) Childhood Physical Exam Vitals: Vital Signs Temp Pulse Resp BP Pulse Ox 09/25/16 15:00 96.6 F L 51 L 18 128/67 95 03/27/17 07:00 97.7 F 55 L 18 145/65 95 09/24/16 23:00 97.2 F L 63 16 110/54 94 L Intake and Output 09/25/16 09/25/16 09/25/16 06:59 14:59 22:59 Intake Total 1680 Balance 1680 Intake: IV 180 Sodium Chloride 0.9% 1, 180 000 ml @ 20 mls/hr IV . Q24H REBEKAH Rx#:[id number] Intake, IV Titration 250 Amount Vancomycin 1,500 mg In 250 Sodium Chloride 0.9% 250 ml @ 125 mls/hr IVPB Q12H REBEKAH Rx#:[id number] Oral 1250 Other: # Voids 1 3 # Bowel Movements 1 - Constitutional General appearance: cooperative, no acute distress - EENT Eyes: anicteric sclerae, poor dentition, normal appearance ENT: normal oropharynx - Neck Neck: no lymphadenopathy - Respiratory Respiratory: bilateral: CTA - Cardiovascular Heart sounds: normal: S1, S2 leg Peripheral Edema: bilateral: 1+ - Gastrointestinal Splenomegaly of about 2 fingerbreadths below the costal margin with inspiration , abdomen is distended, 1-2 fingerbreadths below costal margin hepatomegaly with inspiration General gastrointestinal: soft - Integumentary Multiple scabbed lesions noted on thighs and abdomen on the bilateral lower extremities are bronzed, no heat, ulcers or weeping noted. - Neurologic Neurologic: CNII-XII intact - Musculoskeletal Musculoskeletal: generalized weakness, strength equal bilaterally - Psychiatric Psychiatric: A&O x's 3, appropriate affect, intact judgment & insight Results CBC & Chem 7: 09/25/16 08:21 09/25/16 08:21 Labs: Abnormal Lab Results - Last 24 Hours (Table) 09/24/16 09/25/16 09/25/16 Range/Units 20:42 03:11 08:21 WBC 2.3 L (3.8-10.6) k/uL Hct 33.6 L (34.0-46.0) % Plt Count 38 L* (150-450) k/uL Lymphocytes # (Manual) 0.2 L (1.0-4.8) k/uL Carbon Dioxide (22-30) mmol/L BUN (7-17) mg/dL Glucose (74-99) mg/dL POC Glucose (mg/dL) 200 H 139 H (75-99) mg/dL Magnesium (1.6-2.3) mg/dL TIBC (265-497) ug/dL % Saturation (20-50) % AST (14-36) U/L Total Protein (6.3-8.2) g/dL Albumin (3.5-5.0) g/dL 09/25/16 09/25/16 09/25/16 Range/Units 08:21 08:21 08:28 WBC (3.8-10.6) k/uL Hct (34.0-46.0) % Plt Count (150-450) k/uL Lymphocytes # (Manual) (1.0-4.8) k/uL Carbon Dioxide 31 H (22-30) mmol/L BUN 21 H (7-17) mg/dL Glucose 141 H (74-99) mg/dL POC Glucose (mg/dL) 146 H (75-99) mg/dL Magnesium 1.5 L (1.6-2.3) mg/dL TIBC 226 L (265-497) ug/dL % Saturation 19.0 L (20-50) % AST 40 H (14-36) U/L Total Protein 6.1 L (6.3-8.2) g/dL Albumin 3.0 L (3.5-5.0) g/dL 09/25/16 09/25/16 Range/Units 12:06 16:29 WBC (3.8-10.6) k/uL Hct (34.0-46.0) % Plt Count (150-450) k/uL Lymphocytes # (Manual) (1.0-4.8) k/uL Carbon Dioxide (22-30) mmol/L BUN (7-17) mg/dL Glucose (74-99) mg/dL POC Glucose (mg/dL) 210 H 110 H (75-99) mg/dL Magnesium (1.6-2.3) mg/dL TIBC (265-497) ug/dL % Saturation (20-50) % AST (14-36) U/L Total Protein (6.3-8.2) g/dL Albumin (3.5-5.0) g/dL Assessment and Plan (1) Thrombocytopenia Narrative/Plan: Multiple labs been ordered for evaluation. We'll attempt to find patient's director of customer acquisition at [facility]. If she is going to be living locally I recommended that she should establish with a director of customer acquisition just to follow with her if needed, she verbalized understanding. For platelet count less than 50,000 no aspirin, NSAIDs, anticoagulation, heparin has been placed on hold for the time being. Status: Chronic
[2016-09-25 20:46] LABS: Glucose,Whole Blood 154 mg/dL (75-99)
[2016-09-25] MEDS: amLODIPine 5 MG TAB PO SCH (20:53)
[2016-09-25] MEDS: LEVOFLOXACIN 500 MG TAB PO SCH (20:53)
[2016-09-25] MEDS: SODIUM CHLORIDE 0.9% 1,000 ML IV SCH (20:55)
[2016-09-26] MEDS: traMADol-ACETAMINOP 37.5-325MG 1 EACH TAB PO PRN ×2 (00:41→23:11)
[2016-09-26 00:47] LABS: ANA w/Reflex to Titer NEGATIVE (NEGATIVE)
[2016-09-26 02:31] LABS: Glucose,Whole Blood 179 mg/dL (75-99)
[2016-09-26] MEDS: VANCOMYCIN 1,500 MG in SODIUM CHLORIDE 0.9% 250 ML IVPB SCH (05:05)
[2016-09-26 06:55] LABS: HIV-1/HIV-2 Ab Screen NONREAC (NON REAC)
[2016-09-26 07:10] LABS: Glucose,Whole Blood 101 mg/dL (75-99)
--- NOTE | 2016-09-26 07:26 | PN ---
DATE OF SERVICE: 09/25/2016 This is a 71-year-old woman who was admitted with change in mental status, also had a Proteus UTI with possible sepsis. Seen and evaluated the patient with the nurse practitioner. Please refer to the nurse practitioner's notes and impression document as ascribed for further information. Continue with the antibiotics. Further recommendations to follow.
[2016-09-26] MEDS: VENLAFAXINE HCL 75 MG TAB PO SCH ×3 (07:36→21:51)
[2016-09-26] MEDS: INSULN ASP PRT/INSULIN ASPART 100 UNIT/ML 10 ML VIAL SQ SCH ×2 (07:36→21:08)
[2016-09-26] MEDS: HYDROCHLOROTHIAZIDE 25 MG TAB PO SCH (07:37)
[2016-09-26] MEDS: cloNIDine HCL 0.1 MG TAB PO SCH ×2 (07:37→19:58)
[2016-09-26] MEDS: METOPROLOL TARTRATE 50 MG TAB PO SCH ×2 (07:37→19:58)
[2016-09-26] MEDS: LOSARTAN-HCTZ 50-12.5 MG 1 EACH TAB PO SCH (07:37)
[2016-09-26] MEDS: OXYBUTYNIN 15 MG TAB.ER.24 PO SCH (07:37)
[2016-09-26] MEDS: hydrOXYzine HCL 25 MG TAB PO SCH (07:38)
[2016-09-26] MEDS: PANTOPRAZOLE 40 MG TABLET PO SCH (07:39)
[2016-09-26] MEDS: metFORMIN 500 MG TAB PO SCH ×2 (07:39→17:19)
[2016-09-26] MEDS: CHOLESTYRAMINE (WITH SUGAR) 4 GM PACKET PO SCH (07:39)
[2016-09-26] MEDS: MEROPENEM 1 GM in SODIUM CHLORIDE 0.9% 100 ML IVPB SCH (07:39)
[2016-09-26] MEDS: INSULIN LISPRO (humaLOG) 300 UNIT/3 ML VIAL SQ SCH ×4 (08:26→21:08)
[2016-09-26] MEDS: BETAMETHASONE DIPROPIONATE 0.05% CREAM 15 GM TUBE TOPICAL SCH ×2 (08:30→20:01)
[2016-09-26] MEDS: MUPIROCIN 2% OINT 22 GM TUBE TOPICAL SCH ×2 (08:30→20:01)
[2016-09-26 09:11] LABS: Basophils % (A) 1 %; CHCM 34.1; Eosinophils # (A) 0.3 k/uL (0-0.7); Eosinophils % (A) 11 %; HDW 3.88; HGB 12.3 gm/dL (11.4-16.0); Luc % (Auto) 4; Lymphocytes # (A) 0.4 k/uL (1.0-4.8); Lymphocytes % (A) 13 %; MCH 29.5 pg (25.0-35.0); MCHC 33.2 g/dL (31.0-37.0); MCV 88.8 fL (80.0-100.0); Mean Platelet Volume 8.8; Monocytes # (A) 0.2 k/uL (0-1.0); Monocytes % (A) 6 %; Neutrophils # (A) 1.9 k/uL (1.3-7.7); Neutrophils % (A) 66 %; Poikilocytosis Slight; RBC 4.17 m/uL (3.80-5.40); RDW 15.1 % (11.5-15.5); WBC 2.8 k/uL (3.8-10.6); WBC (Perox) 3.01
[2016-09-26 09:46] LABS: ALT 40 U/L (9-52); AST 41 U/L (14-36); Alkaline Phosphatase 68 U/L (38-126); Anion Gap 11 mmol/L; Blood Urea Nitrogen 20 mg/dL (7-17); Calcium 9.6 mg/dL (8.4-10.2); Carbon Dioxide 27 mmol/L (22-30); Chloride 104 mmol/L (98-107); Glucose 180 mg/dL (74-99); Non-African American GFR(MDRD) >60 (>60 ml/min/1.73 sqM); Potassium 4.3 mmol/L (3.5-5.1); Sodium 142 mmol/L (137-145); Total Protein 6.7 g/dL (6.3-8.2)
[2016-09-26 11:29] LABS: Glucose,Whole Blood 215 mg/dL (75-99)
--- NOTE | 2016-09-26 15:50 | US ---
EXAMINATION TYPE: US liver DATE OF EXAM: 09/26/2016 3:30 PM COMPARISON: NONE CLINICAL HISTORY: abd distension. Cholecystectomy, lower abdominal pain. History of cirrhosis. EXAM MEASUREMENTS: Liver Length: 14.4 cm Gallbladder Wall: Surgically absent CBD: 0.6 cm Right Kidney: 11.3 x 5.5 x 5.6 cm Technical limitations due to patient's body habitus and large amount of overlying bowel content Pancreas: obscured by overlying bowel content Liver: heterogeneous. Prominent vascularity adjacent to left lobe Gallbladder: Surgically absent CBD: appears wnl Right Kidney: probable stone lower pole = 0.9cm Visualized pancreas is heterogeneous in appearance. Majority of pancreas is suboptimally evaluated on this study. Visualized liver is heterogeneously hyperechoic in appearance without intrahepatic ducta l dilatation. Evaluation for focal masses is limited due to the heterogeneity. Common bile duct measu res 6 mm which is within normal limits after cholecystectomy. Gallbladder is surgically absent. No gr oss hydronephrosis is seen on limited images of right kidney. There is shadowing 9 mm hyperechoic foc us lower pole level right kidney suspicious for renal calculus. IMPRESSION: Suboptimal study, no significant fluid or ascites is seen. Heterogeneity of liver is cons istent with diffuse fatty infiltration or product of underlying hepatocellular disease.
[2016-09-26] MEDS: FOLIC ACID 1 MG TAB PO SCH (15:51)
[2016-09-26] MEDS: MULTIVITAMINS, THERA 1 EACH TAB PO SCH (15:51)
[2016-09-26] MEDS: B COMPLEX-VIT C-VIT E-ZINC 1 EACH TAB PO SCH (15:51)
[2016-09-26] MEDS: THIAMINE 100 MG TAB PO SCH (15:51)
[2016-09-26 16:36] LABS: Glucose,Whole Blood 119 mg/dL (75-99)
--- NOTE | 2016-09-26 16:42 | P.PN ---
Subjective Date of service 09/26/2016. Progress note dictated for . Interval history: This a 71-year-old female resident of an assisted living , admitted with acute metabolic encephalopathy, possibly secondary to liver disease, UTI with Proteus mirabilis,sepsis and multiple other medical issues. Evaluated by infectious disease and antibiotics changed to Rocephin. Repeat urine culture pending. Platelets mildly improved currently 41, liver ultrasound pending, heparin subcu on hold. Denies signs or symptoms of bleeding. Objective - Vital Signs Vital signs: Vital Signs Temp 97.0 F L 09/26/16 07:00 Pulse 61 09/26/16 07:00 Resp 16 09/26/16 07:00 BP 147/68 09/26/16 07:00 Pulse Ox 95 09/26/16 07:00 Intake & Output 09/25/16 09/26/16 09/26/16 18:59 06:59 18:59 Intake Total 1680 450 Balance 1680 450 Intake: IV 180 Sodium Chloride 0.9% 1, 180 000 ml @ 20 mls/hr IV . Q24H REBEKAH Rx#:[id number] Intake, IV Titration 250 Amount Vancomycin 1,500 mg In 250 Sodium Chloride 0.9% 250 ml @ 125 mls/hr IVPB Q12H REBEKAH Rx#:[id number] Oral 1250 450 Other: # Voids 3 2 2 # Bowel Movements 1 - Exam PHYSICAL EXAM: VITAL SIGNS: As above GENERAL: [Sitting up at side of bed, no acute distress] HEENT: [Pupils equal conjunctiva normal, poor dentition.] NECK: [Supple, no JVD] RESPIRATORY EFFORT:[Normal] LUNGS: [Diminished, CARDIOVASCULAR[regular S1 and S2, no murmurs rubs or gallops, positive edema] GI: [Abdomen soft, nontender, positive bowel sounds.] PSYCH: [Alert and oriented -2, mild pleasant confusion SKIN: Bilateral lower extremities erythema improving NEURO: No gross focal deficits, generalized diffuse weakness. 0 Microbiology 09/25/16 20:30 Urine,Voided Urine Culture - Preliminary 09/22/16 18:50 Blood Blood Culture - Preliminary No Growth after 72 hours 09/22/16 18:50 Urine,Voided Urine Culture - Final Proteus mirabilis - Labs CBC & Chem 7: 09/26/16 08:25 09/26/16 08:25 Labs: Abnormal Lab Results - Last 24 Hours (Table) 09/25/16 09/25/16 09/25/16 Range/Units 08:21 08:21 16:29 WBC (3.8-10.6) k/uL Plt Count (150-450) k/uL Lymphocytes # (1.0-4.8) k/uL BUN (7-17) mg/dL Glucose (74-99) mg/dL POC Glucose (mg/dL) 110 H (75-99) mg/dL TIBC 226 L (265-497) ug/dL % Saturation 19.0 L (20-50) % AST (14-36) U/L Albumin (3.5-5.0) g/dL RBC Folate 1,026 H (280 - 791) ng/mL 09/25/16 09/26/16 09/26/16 Range/Units 20:45 02:22 07:06 WBC (3.8-10.6) k/uL Plt Count (150-450) k/uL Lymphocytes # (1.0-4.8) k/uL BUN (7-17) mg/dL Glucose (74-99) mg/dL POC Glucose (mg/dL) 154 H 179 H 101 H (75-99) mg/dL TIBC (265-497) ug/dL % Saturation (20-50) % AST (14-36) U/L Albumin (3.5-5.0) g/dL RBC Folate (280 - 791) ng/mL 09/26/16 09/26/16 09/26/16 Range/Units 08:25 08:25 11:23 WBC 2.8 L (3.8-10.6) k/uL Plt Count 41 L* (150-450) k/uL Lymphocytes # 0.4 L (1.0-4.8) k/uL BUN 20 H (7-17) mg/dL Glucose 180 H (74-99) mg/dL POC Glucose (mg/dL) 215 H (75-99) mg/dL TIBC (265-497) ug/dL % Saturation (20-50) % AST 41 H (14-36) U/L Albumin 3.3 L (3.5-5.0) g/dL RBC Folate (280 - 791) ng/mL Microbiology - Last 24 Hours (Table) 09/25/16 20:30 Urine Culture - Preliminary Urine,Voided Assessment and Plan Plan: 1. [Change in mental status, acute metabolic encephalopathy with acute on chronic, multifactorial possibly secondary liver disease, UTI with sepsis]. 2. [UTI with Proteus mirabilis with sepsis, present on admission]. 3. [Diabetes mellitus type 2]. 4. [Diffuse skin lesions possibly secondary from chronic liver disease or scabies]. 5. Chronic liver disease]. 6. [Remote history of significant polysubstance abuse]. 7. [Thrombocytopenia]. 8. Hypomagnesemia 9. History of MRSA l 10. Degenerative joint disease with history of back surgery and knee surgery 11. History of anxiety, not otherwise specified 12. Remote history of nicotine dependence. Plan: Continue on current medication regime ,monitoring and symptomatic treatment. Antibiotics as mentioned above per infectious disease.repeat Urine culture pending. Discharge planning in progress for tomorrow. The impression and plan of care has been dictated as directed. : I performed a H&P examination of this patient and discussed the same with the dictator. I agree with the dictator's note. Any additional findings/opinions/ etc. will be noted.
--- NOTE | 2016-09-26 17:26 | CONS ---
DATE OF CONSULTATION: 09/26/2016 REASON FOR CONSULTATION: Urinary tract infection with MULTIPLE ANTIBIOTIC ALLERGIES. HISTORY OF PRESENT ILLNESS: The patient is a 71-year-old female, a resident of adult foster care. The patient was brought into the ER at [facility] on 09/22/2016 for evaluation of mental status changes and some swelling and redness of the left leg. Patient subsequently was evaluated by the ER physician. The patient did have a chest x-ray which showed cardiomegaly; no gross heart failure. Patient also had a UA that was positive with the urine culture now showing Proteus mirabilis; however, the patient does have a PENICILLIN AND SULFA ALLERGY. She was started on meropenem and I was asked to see the patient for further recommendations regarding antibiotics. The patient denies having any significant chest pain or shortness of breath. She has some cough. Denies any abdominal pain. Did have some urinary burning but no frequency. Denies having any pain in the pubic or suprapubic or flank area. The patient denies significant pain in her legs. No nausea. No vomiting or any diarrhea. REVIEW OF SYSTEMS: CONSTITUTIONAL: Positive for weakness. No fever has been recorded. EYES: No complaint. ENT: No complaint. RESPIRATORY: No complaint. CARDIOVASCULAR: As per HPI. GENITOURINARY: As per HPI. GASTROINTESTINAL: No complaint. MUSCULOSKELETAL: No complaint. INTEGUMENTARY: As per HPI. PSYCHOLOGIC: No complaint. ENDOCRINE: No complaint. NEUROLOGICAL: No complaint. Patient remains not a very good historian; does answer leading questions regarding most of the information. PAST MEDICAL HISTORY: 1. Diabetes. 2. Hypertension. 3. History of left foot MRSA infection. PAST SURGICAL HISTORY: 1. Cholecystectomy. 2. Hernia repair. 3. Back surgery. 4. Bilateral knee surgery. SOCIAL HISTORY: Remote history of smoking. No drinking or drug use. FAMILY HISTORY: Mother with history of diabetes and congestive heart failure. ALLERGIES: PENICILLIN and SULFA. She has taken cephalosporins in the past without any problem. Medications currently include: 1. Tylenol. 2. Norvasc. 3. Questran. 4. Catapres. 5. Folic acid. 6. Haldol. 7. Hyzaar. 8. NovoLog sliding scale. 9. Glucophage. 10. Lopressor. 11. Bactroban. 12. Narcan. 13. Ditropan. 14. Protonix. On examination, blood pressure is 147/68 with a pulse of 61, temperature 97. She is 95% on room air. General description is an elderly female lying in bed in no distress. No tachypnea or accessory muscle of respiration use. HEENT examination shows no pallor or scleral icterus. Oral mucosa membrane dry. NECK: Trachea is central. No thyromegaly. LUNGS: Unlabored breathing. Clear to auscultation anteriorly. No wheeze or crackle. HEART: S1, S2. Regular rate and rhythm. ABDOMEN: Soft. No tenderness. No guarding or rigidity. EXTREMITIES: No edema of feet. SKIN EXAMINATION: No rash or mass palpable. NEUROLOGICAL: The patient is awake, alert, oriented x3. Mood and affect normal. LABS: Hemoglobin is 12.3. White count 2.8. BUN of 20, creatinine 0.80. Electrolytes have been normal. Urine has been positive with Proteus mirabilis. Blood culture has been negative. DIAGNOSTIC IMPRESSION AND PLAN: 1. Patient admitted to hospital with mental status changes and weakness. So far the patient did have evidence of Proteus mirabilis urinary tract infection. No significant cellulitis was noticed on the left leg, with very minimal swelling there, and no other clinical focus of infection. 2. Patient has MULTIPLE ANTIBIOTIC ALLERGIES. That will limit the number of antibiotics it will be safe to use. However, she has tolerated cephalosporin in the past. PLAN: 1. Discontinue the meropenem. 2. Will start the patient on Rocephin 1 gram IV piggyback daily now RN has been advised to watch closely. Patient during infusion and if any symptoms, to call us. 3. If the patient tolerates the Rocephin, she will be able to finish therapy with p.o. Ceftin 500 mg twice a day for about a week. Thank you for this consultation. Will follow this patient along with you. MARCELLUS
[2016-09-26] MEDS: amLODIPine 5 MG TAB PO SCH (19:58)
[2016-09-26] MEDS: SODIUM CHLORIDE 0.9% 1,000 ML IV SCH (19:59)
[2016-09-26 21:22] LABS: Glucose,Whole Blood 298 mg/dL (75-99)
[2016-09-27 03:29] LABS: Glucose,Whole Blood 105 mg/dL (75-99)
[2016-09-27] MEDS ORDERED: VANCOMYCIN TROUGH DUE 1 EACH MISC MISCELLANE ONE (05:00)
[2016-09-27 07:32] LABS: Glucose,Whole Blood 106 mg/dL (75-99)
[2016-09-27 07:43] VITALS: BP 119/62; RESP 16; TEMP 97.6
[2016-09-27] MEDS: INSULIN LISPRO (humaLOG) 300 UNIT/3 ML VIAL SQ SCH ×2 (07:48→13:09)
[2016-09-27] MEDS: metFORMIN 500 MG TAB PO SCH (07:54)
[2016-09-27] MEDS: OXYBUTYNIN 15 MG TAB.ER.24 PO SCH (07:54)
[2016-09-27] MEDS: PANTOPRAZOLE 40 MG TABLET PO SCH (07:54)
[2016-09-27] MEDS: VENLAFAXINE HCL 75 MG TAB PO SCH (07:55)
[2016-09-27] MEDS: LOSARTAN-HCTZ 50-12.5 MG 1 EACH TAB PO SCH (07:55)
[2016-09-27] MEDS: CHOLESTYRAMINE (WITH SUGAR) 4 GM PACKET PO SCH (07:55)
[2016-09-27] MEDS: METOPROLOL TARTRATE 50 MG TAB PO SCH (07:55)
[2016-09-27] MEDS: HYDROCHLOROTHIAZIDE 25 MG TAB PO SCH (07:55)
[2016-09-27] MEDS: INSULN ASP PRT/INSULIN ASPART 100 UNIT/ML 10 ML VIAL SQ SCH (07:56)
[2016-09-27] MEDS: MUPIROCIN 2% OINT 22 GM TUBE TOPICAL SCH (07:58)
[2016-09-27] MEDS: BETAMETHASONE DIPROPIONATE 0.05% CREAM 15 GM TUBE TOPICAL SCH (07:58)
[2016-09-27] MEDS: cloNIDine HCL 0.1 MG TAB PO SCH (07:58)
[2016-09-27 08:00] VITALS: PULSE 61
[2016-09-27] MEDS: traMADol-ACETAMINOP 37.5-325MG 1 EACH TAB PO PRN (08:01)
[2016-09-27 09:26] LABS: ALT 51 U/L (9-52); AST 64 U/L (14-36); Alkaline Phosphatase 69 U/L (38-126); Anion Gap 4 mmol/L; Basophils % (A) 1 %; Blood Urea Nitrogen 19 mg/dL (7-17); CH 29.6; CHCM 33.7; Calcium 9.9 mg/dL (8.4-10.2); Carbon Dioxide 33 mmol/L (22-30); Chloride 104 mmol/L (98-107); Eosinophils # (A) 0.2 k/uL (0-0.7); Eosinophils % (A) 10 %; Glucose 106 mg/dL (74-99); HCT 34.3 % (34.0-46.0); HDW 3.75; HGB 11.4 gm/dL (11.4-16.0); Luc # (Auto) 0.07; Luc % (Auto) 3; Lymphocytes # (A) 0.4 k/uL (1.0-4.8); Lymphocytes % (A) 17 %; MCH 29.6 pg (25.0-35.0); MCHC 33.4 g/dL (31.0-37.0); MCV 88.6 fL (80.0-100.0); Mean Platelet Volume 8.5; Monocytes # (A) 0.2 k/uL (0-1.0); Monocytes % (A) 7 %; Neutrophils # (A) 1.5 k/uL (1.3-7.7); Neutrophils % (A) 63 %; Non-African American GFR(MDRD) >60 (>60 ml/min/1.73 sqM); Poikilocytosis Slight; Potassium 4.4 mmol/L (3.5-5.1); RBC 3.87 m/uL (3.80-5.40); Sodium 141 mmol/L (137-145); Total Bilirubin 0.9 mg/dL (0.2-1.3); Total Protein 6.5 g/dL (6.3-8.2); WBC 2.3 k/uL (3.8-10.6); WBC (Perox) 2.38
[2016-09-27 12:13] LABS: Glucose,Whole Blood 135 mg/dL (75-99)
[2016-09-27] MEDS: FOLIC ACID 1 MG TAB PO SCH (13:08)
[2016-09-27] MEDS: THIAMINE 100 MG TAB PO SCH (13:08)
[2016-09-27] MEDS: MULTIVITAMINS, THERA 1 EACH TAB PO SCH (13:08)
[2016-09-27] MEDS: B COMPLEX-VIT C-VIT E-ZINC 1 EACH TAB PO SCH (13:08)
--- NOTE | 2016-09-27 17:53 | P.DS ---
Providers Date of admission: 09/22/16 22:13 Expected date of discharge: 09/27/16 Attending physician: Noé Cartwright Consults: 09/25/16 12:45 Consult Physician Routine Consulting Provider: Anibal Chacko Consult Reason/Comments: low platelets Do you want consulting provider notified?: Yes 09/26/16 10:03 Consult Physician Routine Consulting Provider: Maddison Templeton Consult Reason/Comments: uti with proteus mirab. Do you want consulting provider notified?: Yes Primary care physician: Jabier [facility] Hospital Course: Final Diagnoses: 1. [Change in mental status, acute metabolic encephalopathy with acute on chronic, multifactorial possibly secondary liver disease, UTI with sepsis], improved. 2. [UTI with Proteus mirabilis with sepsis, present on admission]. 3. [Diabetes mellitus type 2]. 4. [Diffuse skin lesions possibly secondary from chronic liver disease or scabies]. 5. Chronic liver disease, diffuse fatty liver or underlying hepatocellular disease per ultrasound]. 6. [Remote history of significant polysubstance abuse]. 7. [Thrombocytopenia]. 8. Hypomagnesemia 9. History of MRSA l 10. Degenerative joint disease with history of back surgery and knee surgery 11. History of anxiety, not otherwise specified 12. Remote history of nicotine dependence. Hospital course:This is a 71-year-old female resident of an assisted living , admitted with acute metabolic encephalopathy, possibly secondary to liver disease, UTI with Proteus mirabilis,sepsis, thrombocytopenia and multiple other medical issues. Evaluated with antibiotics adjusted as per infectious disease. Significant clinical improvement. Evaluated by hematology in regards to Thrombocytopenia; patient follows with retail support manager at [facility]. Currently no aspirin, NSAIDs or anticoagulation recommended. Patient cleared for discharge by all consults. Patient is being discharged to [facility] in a stable condition, with guarded prognosis. Patient Condition at Discharge: Stable Plan - Discharge Summary New Discharge Prescriptions: B Complex-Vit C-Vit E-Zinc [Z-Bec] 1 each PO DAILY@1200 #30 tab Cefuroxime Axetil [Ceftin] 500 mg PO BID #14 tab amLODIPine [Norvasc] 5 mg PO HS #30 tab Discharge Medication List Betamethasone Dipropionate [Diprolene AF 0.05% Cream] 1 applic TOPICAL BID 09/22 [History] Cholestyramine (with Sugar) [Questran Packet] 4 gm PO DAILY 09/22/16 [History] Cranberry 425mg 425 mg PO DAILY 09/22/16 [History] Haloperidol [Haldol] 5 mg PO BID PRN 09/22/16 [History] Hydrochlorothiazide [Hydrodiuril] 25 mg PO DAILY 09/22/16 [History] Insulin Aspart Protam & Aspart [NovoLOG MIX 70-30 Flexpen] 16 unit SQ HS [History] Insulin Aspart Protam & Aspart [NovoLOG MIX 70-30 Flexpen] 28 unit SQ AC-BRKFST 09/22/16 [History] Losartan/Hydrochlorothiazide [Losartan-Hctz 100-25 mg Tab] 1 tab PO DAILY [History] Metoprolol Tartrate [Lopressor] 100 mg PO BID 09/22/16 [History] Mupirocin 2% Oint [Bactroban 2% Oint] 1 applic TOPICAL BID 09/22/16 [History] Omeprazole [PriLOSEC] 20 mg PO DAILY 09/22/16 [History] Oxybutynin ER [Ditropan Xl] 15 mg PO DAILY 09/22/16 [History] Venlafaxine HCl [Effexor] 75 mg PO TID 09/22/16 [History] cloNIDine HCL 0.3 mg PO BID 09/22/16 [History] metFORMIN HCL [Glucophage] 500 mg PO BID 09/22/16 [History] traMADol-ACETAMINOP 37.5-325MG [Ultracet] 1 tab PO QID PRN 09/22/16 [History] B Complex-Vit C-Vit E-Zinc [Z-Bec] 1 each PO DAILY@1200 #30 tab 09/27/16 [Rx] Cefuroxime Axetil [Ceftin] 500 mg PO BID #14 tab 09/27/16 [Rx] amLODIPine [Norvasc] 5 mg PO HS #30 tab 09/27/16 [Rx] Follow up Appointment(s)/Referral(s): Jabier Renner DO [Primary Care Provider] - 10/03/16 Maddison Templeton MD [STAFF PHYSICIAN] - As Needed Anibal Chacko MD [STAFF PHYSICIAN] - 1 Week (Or may follow with patient's own retail support manager at [facility]) Ambulatory/Diagnostic Orders: Complete Blood Count w/diff [LAB.AMB] Time Frame: 3 Days, Location: Determined By Patient Patient Instructions/Handouts: Cellulitis (DC) Activity/Diet/Wound Care/Special Instructions: [facility] Diet consistent carb, cardiac diet. Accu-Cheks before meals and at bedtime and record. Activity: Limited until follow up Discharge Disposition: HOME SELF-CARE
--- NOTE | 2016-09-27 20:11 | PN ---
DATE OF SERVICE: 09/27/2016 REASON FOR FOLLOWUP: Proteus mirabilis urinary tract infection. INTERVAL HISTORY: The patient is afebrile. She is breathing comfortably. Denies significant chest pain or shortness of breath or cough. No abdominal pain or any diarrhea. On examination, her blood pressure is 119/62 with a pulse of 51, temperature 96.6. She is 94% on room air. General description is an elderly female up in the bed in no distress. RESPIRATORY SYSTEM: Unlabored breathing. Clear to auscultation anteriorly. HEART: S1, S2. Regular rate and rhythm. ABDOMEN: Soft. No tenderness. LEFT LEG: No swelling or redness. LABS: Hemoglobin 11.4, white count 2.3 with a BUN of 19, creatinine 0.75. DIAGNOSTIC IMPRESSION AND PLAN: Patient with Proteus mirabilis urinary tract infection. The patient does have MULTIPLE ANTIBIOTIC ALLERGIES. Patient did well on Rocephin. She will be switched over to p.o. Ceftin 500 mg twice a day for another 7 days to finish the course of therapy. Continue supportive care. [facility]
== END 2016-09-27 15:47 | disposition home health service (06) | DRG 871 ==
LOC: EC 17:18 → EEVIPCON 17:18 → 4MS4W 22:13
PROVIDERS: ADMIT Internal Medicine; ATTEND Internal Medicine
DX: A41.9 Sepsis, unspecified organism (principal); G93.41 Metabolic encephalopathy; D69.59 Other secondary thrombocytopenia; I11.9 Hypertensive heart disease without heart failure; E83.42 Hypomagnesemia; N39.0 Urinary tract infection, site not specified; E11.9 Type 2 diabetes mellitus without complications; B96.4 Proteus (mirabilis) (morganii) as the cause of diseases classified elsewhere; K74.60 Unspecified cirrhosis of liver; K76.0 Fatty (change of) liver, not elsewhere classified; L29.9 Pruritus, unspecified; Z86.14 Personal history of Methicillin resistant Staphylococcus aureus infection; Z16.24 Resistance to multiple antibiotics; Z90.49 Acquired absence of other specified parts of digestive tract; Z87.891 Personal history of nicotine dependence; Z88.0 Allergy status to penicillin; Z88.2 Allergy status to sulfonamides; Z87.898 Personal history of other specified conditions; Z79.84 Long term (current) use of oral hypoglycemic drugs; Z79.4 Long term (current) use of insulin; Z79.899 Other long term (current) drug therapy
CPT/HCPCS: 36415; 70450; 71020; 76705; 80053; 80074; 80202; 81001; 82140; 82550; 82553; 82607; 82728; 82747; 83036; 83540; 83550; 83605; 83735; 84100; 84165; 84484; 85025; 85379; 85610; 85730; 86038; 86334; 86431; 87040; 87077; 87086; 87186; 87389; 93005; 93970; 96365; 96366; 99285